=== PATIENT | male | born 1960 | race Caucasian/White ===

== ENCOUNTER → 2016-10-24 | Outpatient (CLI) | payer BC ==
--- NOTE | 2016-10-24 10:18 | XR ---
EXAMINATION TYPE: XR chest 2V DATE OF EXAM: 10/24/2016 7:55 AM HISTORY: R05 cough. REFERENCE: Previous study dated 10/02/2010. FINDINGS: The lungs are overinflated. The lungs are clear. Pleural spaces are clear. Heart size is no rmal. IMPRESSION: COPD.
== END | disposition home or self-care (01) ==
LOC: RADXRMAIN 07:37
PROVIDERS: ATTEND Family Medicine
DX: J44.9 Chronic obstructive pulmonary disease, unspecified (principal)
CPT/HCPCS: 71020

== ENCOUNTER → 2017-04-20 | Outpatient (CLI) | payer BC ==
[2017-04-20 10:07] LABS: CH 33.5; CHCM 33.9; HCT 44.3 % (39.0-53.0); HDW 2.53; HGB 14.7 gm/dL (13.0-17.5); MCHC 33.3 g/dL (31.0-37.0); MCV 99.3 fL (80.0-100.0); Mean Platelet Volume 8.2; RBC 4.47 m/uL (4.30-5.90); RDW 13.9 % (11.5-15.5)
[2017-04-20 10:48] LABS: ALT 44 U/L (21-72); AST 26 U/L (17-59); Anion Gap 9 mmol/L; Carbon Dioxide 26 mmol/L (22-30); Chloride 106 mmol/L (98-107); Non-African American GFR(MDRD) >60 (>60 ml/min/1.73 sqM); Potassium 4.4 mmol/L (3.5-5.1); Sodium 141 mmol/L (137-145)
[2017-04-21 00:47] LABS: Hemoglobin A1C 5.6 % (4.2-6.1)
== END | disposition home or self-care (01) ==
LOC: LABWHC1 09:29
PROVIDERS: ATTEND Psychiatry & Neurology Psychiatry
DX: F32.9 Major depressive disorder, single episode, unspecified (principal)
CPT/HCPCS: 36415; 80051; 82565; 83036; 84439; 84443; 84450; 84460; 84481; 85027

== ENCOUNTER 2017-08-19 08:36 | Day surgery (SDC) | payer BC ==
[2017-08-18 08:47] VITALS: BMI 38.4
[~2017-08-19 08:36] MED LIST: LACTATED RINGERS 1,000 ML IV SCH; LIDOCAINE 1% 20 ML VIAL (10MG/ML) FOR IV START INTRADERMA PRN
[2017-08-19 09:04] VITALS: RESP 18; TEMP 97.2
[2017-08-19] MEDS ORDERED: fentaNYL (PF) 50 MCG/ML 2 ML AMP ONE (09:30)
[2017-08-19] MEDS ORDERED: MIDAZOLAM 2 MG/2 ML VIAL ONE (09:30)
[2017-08-19] MEDS ORDERED: PROPOFOL 10 MG/ML 20 ML VIAL IV ONE (09:30)
--- NOTE | 2017-08-19 09:54 | P.PCN ---
Date of Procedure: 08/19/17 Procedure(s) Performed: BRIEF HISTORY: Patient is a 57-year-old pleasant white male, scheduled for an elective colonoscopy as a part of screening for colorectal neoplasia. PROCEDURE PERFORMED: Colonoscopy with biopsy. PREOPERATIVE DIAGNOSIS: Screening for colon cancer. IV sedation per Anesthesia. PROCEDURE: After informed consent was obtained, the patient, was brought into the endoscopy unit. IV sedation was administered by Anesthesia under continuous monitoring. Digital rectal examination was normal. Initially the Olympus CF- 160 flexible video colonoscope was then inserted in the rectum, gradually advanced into the cecum without any difficulty. Careful examination was performed as the scope was gradually being withdrawn. Ileocecal valve and the appendiceal orifice were visualized and appeared normal. Prep was excellent. Mucosa of the cecum, appeared normal. In the ascending colon there was a 5 mm polyp that was removed by biopsy. In the descending colon there was another 5 mm polyp that was removed by biopsy. Rest of the ascending colon, transverse colon, descending colon, sigmoid colon, and rectum appeared normal. Retroflexion was performed in the rectum and no lesions were seen. The patient tolerated the procedure well. IMPRESSION: 5 mm ascending colon polyp status post removal by cold biopsy 5 mm ascending colon polyp status post removal by cold biopsy Scattered sigmoid diverticulosis RECOMMENDATIONS: Findings of this examination were discussed with the patient as well as his family. He was advised to follow with the biopsy results. If the biopsy shows a tubular adenoma, he can have a repeat colonoscopy in 5 years.
[2017-08-19 10:14] VITALS: BP 128/67; PULSE 60
== END 2017-08-19 10:35 | disposition home or self-care (01) ==
LOC: ORWHC2ENDO 08:36
PROVIDERS: ATTEND Internal Medicine Gastroenterology
DX: Z12.11 Encounter for screening for malignant neoplasm of colon (principal); D12.2 Benign neoplasm of ascending colon; K63.5 Polyp of colon; K57.30 Diverticulosis of large intestine without perforation or abscess without bleeding; I10 Essential (primary) hypertension; F17.210 Nicotine dependence, cigarettes, uncomplicated; E78.5 Hyperlipidemia, unspecified; G47.33 Obstructive sleep apnea (adult) (pediatric); F32.9 Major depressive disorder, single episode, unspecified; Z79.82 Long term (current) use of aspirin; Z79.899 Other long term (current) drug therapy
CPT/HCPCS: 88305; 45380; J2250; J3010; J2704

== ENCOUNTER → 2019-10-06 | Outpatient (CLI) | payer BC ==
--- NOTE | 2019-10-06 09:25 | US ---
EXAMINATION TYPE: US carotid duplex BILAT DATE OF EXAM: 10/06/2019 COMPARISON: NONE CLINICAL HISTORY: R42 Dizziness, giddiness. Dizziness EXAM MEASUREMENTS: RIGHT: Peak Systolic Velocity (PSV) cm/sec ----- Right CCA: 87.7 ----- Right ICA: 133.0 ----- Right ECA: 91.4 ICA/CCA ratio: 1.5 RIGHT: End Diastole cm/sec ----- Right CCA: 17.7 ----- Right ICA: 16.0 ----- Right ECA: 18.7 LEFT: Peak Systolic Velocity (PSV) cm/sec ----- Left CCA: 103.0 ----- Left ICA: 133.0 ----- Left ECA: 173.0 ICA/CCA ratio: 1.3 LEFT: End Diastole cm/sec ----- Left CCA: 20.6 ----- Left ICA: 45.5 ----- Left ECA: 24.9 VERTEBRALS (direction of flow): Right Vertebral: Antegrade Left Vertebral: Antegrade Rhythm: Normal Difficult and limited study due to patient body habitus Bilateral intimal thickening, elevated velocities: right distal ICA, left distal ICA and left proxima l ECA, no significant stenosis. IMPRESSION: Elevated velocities throughout however internal carotid artery to common carotid artery ratios are within normal limits indicating underlying hypertension. Only minimal amount of grayscale plaquing. No hemodynamically significant stenosis seen. Criteria for Assigning % of Stenosis / Diameter reduction (Estimation based on the indirect measurements of the internal carotid artery velocities (ICA PSV). 1. Normal (no stenosis)=ICA PSV < 125 cm/s: ratio < 2.0: ICA EDV<40 cm/s. 2. Less than 50% stenosis=ICA PSV < 125 cm/s: ratio < 2.0: ICA EDV<40 cm/s. 3. 50 to 69% stenosis=ICA PSV of 125 to 230 cm/s: ration 2.0 ? 4.0: ICA EDV 40-100 cm/s. 4. Greater than 70% stenosis to near occlusion= ICA PSV > 230 cm/s: ratio > 4.0: ICA EDV > 100 cm/s. 5. Near occlusion= ICA PSV velocities may be low or undetectable: variable ratio and ICA EDV. 6. Total occlusion=unable to detect flow.
== END | disposition home or self-care (01) ==
LOC: RADUSWWP 07:02
PROVIDERS: ATTEND Family Medicine
DX: R42 Dizziness and giddiness (principal)
CPT/HCPCS: 93880

== ENCOUNTER 2020-06-28 10:18 | Day surgery (SDC) | payer BC ==
[2020-06-27 08:44] VITALS: BMI 41.0
[~2020-06-28 10:18] MED LIST changes: -LIDOCAINE 1% 20 ML VIAL (10MG/ML) FOR IV START INTRADERMA PRN
[2020-06-28 10:51] VITALS: TEMP 97
[2020-06-28] MEDS ORDERED: PROPOFOL 10 MG/ML 20 ML VIAL IV ONE (11:57)
[2020-06-28] MEDS ORDERED: LIDOCAINE 1% INJ 10MG/ML (20 ML MDV) ONE (11:57)
--- NOTE | 2020-06-28 12:21 | P.PCN ---
Date of Procedure: 06/28/20 Procedure(s) Performed: BRIEF HISTORY: Patient is a 60-year-old pleasant male scheduled for an elective colonoscopy as a part of evaluation of prior history of colon polyps and intermittent rectal bleeding. PROCEDURE PERFORMED: Colonoscopy with snare polypectomy PREOPERATIVE DIAGNOSIS: History of colon polyps and intermittent rectal bleeding. IV sedation per Anesthesia. PROCEDURE: After informed consent was obtained, the patient, was brought into the endoscopy unit. IV sedation was administered by Anesthesia under continuous monitoring. Digital rectal examination was normal. Initially the Olympus CF-160 flexible video colonoscope was then inserted in the rectum, gradually advanced into the cecum without any difficulty. Careful examination was performed as the scope was gradually being withdrawn. Ileocecal valve and the appendiceal orifice were visualized and appeared normal. Prep was excellent. Mucosa of the cecum, ascending colon, transverse colon, appeared normal. The descending colon there was a 5 mm polyp removed by snare polypectomy. In the sigmoid colon there were 3 polyps all of which measured between 4 and 5 mm in size removed by snare polypectomy. In the distal rectum there was a 3 mm polyp removed by snare polypectomy. Rest of the descending colon, sigmoid colon, and rectum appeared normal. Retroflexion was performed in the rectum and no lesions were seen. The patient tolerated the procedure well. IMPRESSION: 5 mm 3 sigmoid colon polyps status post polypectomy 5 mm descending colon polyp status post polypectomy 3 mm rectal polyp status post snare polypectomy RECOMMENDATIONS: Findings of this examination were discussed with the patient as well as his family. He was advised to follow with the biopsy results. If the biopsy shows an adenoma he can have a repeat colonoscopy in 5 years.
[2020-06-28 12:55] VITALS: BP 155/83; PULSE 64; RESP 16
== END 2020-06-28 13:07 | disposition home or self-care (01) ==
LOC: ORWHC2ENDO 10:18
PROVIDERS: ATTEND Internal Medicine Gastroenterology
DX: K63.5 Polyp of colon (principal); D12.5 Benign neoplasm of sigmoid colon; D12.8 Benign neoplasm of rectum; Z86.010 Personal history of colon polyps; E78.5 Hyperlipidemia, unspecified; G47.33 Obstructive sleep apnea (adult) (pediatric); F32.9 Major depressive disorder, single episode, unspecified; Z98.890 Other specified postprocedural states; Z87.09 Personal history of other diseases of the respiratory system
CPT/HCPCS: 88305; 45385; J2001; J2704

== ENCOUNTER → 2021-07-25 | Outpatient (CLI) | payer BC ==
--- NOTE | 2021-07-25 10:13 | US ---
EXAMINATION TYPE: US venous doppler duplex LE RT DATE OF EXAM: 07/25/2021 9:58 AM COMPARISON: NONE CLINICAL HISTORY: M79.661 Pain in right lower leg. pain right lower leg SIDE PERFORMED: right TECHNIQUE: The lower extremity deep venous system is examined utilizing real time linear array sonog gerardo with graded compression, doppler sonography and color-flow sonography. VESSELS IMAGED: Common Femoral Vein Deep Femoral Vein Greater Saphenous Vein * Femoral Vein Popliteal Vein Small Saphenous Vein * Proximal Calf Veins (* superficial vessels) Right Leg: no evidence of DVT IMPRESSION: No evidence for DVT at this time.
== END | disposition home or self-care (01) ==
LOC: RADUSWWP 08:53
PROVIDERS: ATTEND Family Medicine
DX: M79.661 Pain in right lower leg (principal)

== ENCOUNTER → 2022-08-13 | Outpatient (CLI) | payer OTHER ==
--- NOTE | 2022-08-13 09:16 | CTL ---
EXAMINATION TYPE: CT Low Dose Lung DATE OF EXAM ORDERED: 08/13/2022 HISTORY: 62-year-old male history of tobacco use, current smoker with 40 pack-year history. Lung [facility] er screening CT DLP: 150.[address] CTDI: 4.30 mGy Automated exposure control for dose reduction was used. SCREENING VISIT: Baseline COMPARISON: None TECHNIQUE: Low dose computed tomography scan was performed through the chest with coronal and sagitta l reconstructions. CT DIAGNOSTIC QUALITY: Satisfactory FINDINGS: Heart normal size without pericardial effusion. Extensive three-vessel coronary artery calcifications are present. There is mild ectasia of the upper descending thoracic aorta 3.0 cm. Mild atherosclerotic arch calcif ications within the charge was a branching anatomy. No thoracic lymphadenopathy by CT size criteria. 1.4 cm nodular area medial right upper lobe centrally along the bronchovascular bundles, axial image 75. Unclear if this corresponds to prominent vascular confluence or suspicious underlying nodule. Onesimo e strandy areas of atelectasis in the mid and lower lungs. No consolidation or pleural effusion. Mild diffuse bronchial wall thickening suggesting bronchitis or asthma. Tiny calcified granuloma superior segment left lower lobe, axial image 102. Visualized upper abdomen shows some underlying fatty infiltration of the liver. Bones: Mild to moderate degenerative disc disease throughout the thoracic spine. IMPRESSION: 1. LungRADS Category 4A (suspicious, 5-15% chance of malignancy); either prominent vascular confluenc e or underlying 1.4 cm right upper lobe pulmonary nodule. 2. Bronchial wall thickening suggesting bronchitis or asthma. Recommend smoking cessation. 3. CAD with extensive three-vessel coronary artery calcifications. 4. Hepatic steatosis. CT LUNG RAD AND CT CHEST RECOMMENDATION: Lung-Rad 4A Suspicious: To clarify the above findings, recom mend initial assessment with a contrast-enhanced CT of the chest. Depending on the findings after con trast administration, either PET/CT versus short interval follow-up can be considered. S Modifier (other clinically significant findings): None
== END | disposition home or self-care (01) ==
LOC: RADCTMAIN 07:26
PROVIDERS: ATTEND Internal Medicine
DX: Z12.2 Encounter for screening for malignant neoplasm of respiratory organs (principal); I25.10 Atherosclerotic heart disease of native coronary artery without angina pectoris; K76.0 Fatty (change of) liver, not elsewhere classified; F17.210 Nicotine dependence, cigarettes, uncomplicated; R91.1 Solitary pulmonary nodule
CPT/HCPCS: 71271

== ENCOUNTER → 2022-08-13 | Outpatient (CLI) | payer OTHER ==
--- NOTE | 2022-08-13 07:54 | US ---
EXAMINATION TYPE: US carotid duplex BILAT DATE OF EXAM: 08/13/2022 COMPARISON: US CLINICAL HISTORY: I65.23. Dizziness TECHNIQUE: Carotid duplex ultrasound examination. Indirect Doppler criteria was utilized. FINDINGS: Large pt body habitus, heavy breathing, difficult exam EXAM MEASUREMENTS: RIGHT: Peak Systolic Velocity (PSV) cm/sec ----- Right CCA: 98.2 ----- Right ICA: 125.8 ----- Right ECA: 141.8 ICA/CCA ratio: 1.3 RIGHT: End Diastole cm/sec ----- Right CCA: 24.1 ----- Right ICA: 19.8 ----- Right ECA: 22.7 LEFT: Peak Systolic Velocity (PSV) cm/sec ----- Left CCA: 110.8 ----- Left ICA: 133.4 ----- Left ECA: 122.4 ICA/CCA ratio: 1.2 LEFT: End Diastole cm/sec ----- Left CCA: 37.0 ----- Left ICA: 39.7 ----- Left ECA: 18.9 VERTEBRALS (direction of flow): Right Vertebral: Antegrade Left Vertebral: Antegrade Rhythm: Normal [employer] DE[employer]ER NOTES: Elevated velocities throughout, similar findings to prior US, however no significa nt plaque causing stenosis visualized IMPRESSION: 50 to 69% stenosis of bilateral carotid bifurcations by peak systolic velocity. Criteria for Assigning % of Stenosis / Diameter reduction (Estimation based on the indirect measurements of the internal carotid artery velocities (ICA PSV). 1. Normal (no stenosis)=ICA PSV < 125 cm/s: ratio < 2.0: ICA EDV<40 cm/s. 2. Less than 50% stenosis=ICA PSV < 125 cm/s: ratio < 2.0: ICA EDV<40 cm/s. 3. 50 to 69% stenosis=ICA PSV of 125 to 230 cm/s: ration 2.0 ? 4.0: ICA EDV 40-100 cm/s. 4. Greater than 70% stenosis to near occlusion= ICA PSV > 230 cm/s: ratio > 4.0: ICA EDV > 100 cm/s. 5. Near occlusion= ICA PSV velocities may be low or undetectable: variable ratio and ICA EDV. 6. Total occlusion=unable to detect flow.
== END | disposition home or self-care (01) ==
LOC: RADUSWWP 06:51
PROVIDERS: ATTEND Internal Medicine
DX: I65.23 Occlusion and stenosis of bilateral carotid arteries (principal)
CPT/HCPCS: 93880

== ENCOUNTER → 2022-08-28 | Outpatient (CLI) | payer OTHER ==
--- NOTE | 2022-08-28 09:18 | CT ---
EXAMINATION TYPE: CT chest w con DATE OF EXAM: 08/28/2022 COMPARISON: Low-dose lung screening CT HISTORY: Salter pulmonary nodule. Abnormal CT. CT DLP: 621.90 mGycm. Automated Exposure Control for Dose Reduction was Utilized. TECHNIQUE: CT scan of the thorax is performed following with IV Contrast, patient injected with 100 mL of Isovue 300. FINDINGS: LUNGS: Area of concern central right upper lobe appears to be overestimated as is a confluence of bra nching vessels at this level with likely smaller 4 mm nodule series 4 image 18. No nodules greater th an 1.0 cm. No pleural effusion or pneumothorax is seen. MEDIASTINUM: There are no greater than 1 cm hilar or mediastinal lymph nodes. No cardiomegaly or pe ricardial effusion is seen. Moderate to severe three-vessel coronary artery calcification is redemon strated. OTHER: Visualized liver is heterogeneously hypodense suggesting diffuse fatty infiltration. IMPRESSION: Nodule is felt overestimated as is measured with adjacent confluent and branching vessels . Advise contrast enhanced CT follow-up in 6 months time to reassess as only measuring near 4 to 5 mm on current study.
== END | disposition home or self-care (01) ==
LOC: RADCTMAIN 08:33
PROVIDERS: ATTEND Internal Medicine
DX: R91.1 Solitary pulmonary nodule (principal)
CPT/HCPCS: 71260; Q9967

== ENCOUNTER → 2024-10-12 | Outpatient (CLI) | payer MEDICARE ==
--- NOTE | 2024-10-12 12:43 | CTL ---
EXAMINATION TYPE: CT Low Dose Lung DATE OF EXAM: 10/12/2024 12:29 PM COMPARISON: 08/13/2022 CLINICAL INDICATION: Male, 64 years old with history of Z12.2 SCREENING LUNG CA, personal tobacco use , History of tobacco use. TECHNIQUE: Low Dose CT Lung Screening, Low dose computed tomography scan was performed through the est at 1 millimeter thick sections and reconstructed images in the coronal plane at 1 mm thick sectio ns. IV CONTRAST USED: None. SCREENING VISIT: 2 CT DLP: 95.1 mGycm, Automated exposure control for dose reduction was used. CT CTDI: 2.6 mGy FINDINGS: CT DIAGNOSTIC QUALITY: Satisfactory LUNG NODULES: Nodular vascular confluence right upper lobe appears unchanged relative to prior study. Underlying nodule is not felt to be present. LUNGS: COPD: Severity: Mild Fibrosis: Severity:None Lymph nodes: None Other findings: None RIGHT PLEURAL SPACE: Effusion: None Calcification: None Thickening: None Pneumothorax: None LEFT PLEURAL SPACE: Effusion: None Calcification: None Thickening: None Pneumothorax: None HEART: * Size within normal limits. * No significant coronary artery calcifications. OTHER FINDINGS: Upper abdomen: No significant abnormality Bony thorax: Degenerative changes Supraclavicular region: No significant abnormalityOther: No significant abnormalityI IMPRESSION: 1. No clinically significant pulmonary nodules. 2. Mild emphysema. CT LUNG RAD AND CT CHEST RECOMMENDATION: Lung-Rad 1 Negative: Continue annual screening with LDCT in 12 months. S Modifier (other clinically significant findings): [facility], , 10/12/2024 12:41 PM
--- NOTE | 2024-10-12 12:56 | US ---
EXAMINATION TYPE: US carotid duplex BILAT DATE OF EXAM: 10/12/2024 COMPARISON: 08/13/22 CLINICAL INDICATION: Male, 64 years old with history of [id number] CAROTID STENOSIS, BILATERAL; stenosis Additional History: I65.- Occlusion/stenosis of specified precerebral artery, specified laterality TECHNIQUE: Grayscale, color Doppler and spectral Doppler evaluation of the bilateral carotid systems and vertebral arteries. Indirect Doppler criteria was utilized. FINDINGS: EXAM MEASUREMENTS: RIGHT: Peak Systolic Velocity (PSV) cm/sec ----- Right CCA: 109.9 ----- Right ICA: 72.9 ----- Right ECA: 105.6 ICA/CCA ratio: 0.7 RIGHT: End Diastole cm/sec ----- Right CCA: 19.8 ----- Right ICA: 18.8 ----- Right ECA: 15.0 LEFT: Peak Systolic Velocity (PSV) cm/sec ----- Left CCA: 100.0 ----- Left ICA: 93.8 ----- Left ECA: 113.0 ICA/CCA ratio: 0.9 LEFT: End Diastole cm/sec ----- Left CCA: 21.1 ----- Left ICA: 16.8 ----- Left ECA: 14.6 VERTEBRALS (direction of flow): Right Vertebral: Antegrade Left Vertebral: Antegrade Rhythm: Normal STACKER DRIVER NOTES: plaque seen in left bulb. No elevated velocities seen Color Doppler imaging shows patency with blood flow throughout the carotid artery. Spectral waveforms are within normal limits. IMPRESSION: Right: Less than 50% stenosis of the carotid bifurcation. Left: Less than 50% stenosis of the carotid bifurcation. Criteria for Assigning % of Stenosis / Diameter reduction (Estimation based on the indirect measurements of the internal carotid artery velocities (ICA PSV). 1. Normal (no stenosis)=ICA PSV < 125 cm/s: ratio < 2.0: ICA EDV<40 cm/s. 2. Less than 50% stenosis=ICA PSV < 125 cm/s: ratio < 2.0: ICA EDV<40 cm/s. 3. 50 to 69% stenosis=ICA PSV of 125 to 230 cm/s: ration 2.0 ? 4.0: ICA EDV 40-100 cm/s. 4. Greater than 70% stenosis to near occlusion= ICA PSV > 230 cm/s: ratio > 4.0: ICA EDV > 100 cm/s. 5. Near occlusion= ICA PSV velocities may be low or undetectable: variable ratio and ICA EDV. 6. Total occlusion=unable to detect flow. [facility], , 10/12/2024 12:53 PM
--- NOTE | 2024-10-13 08:59 | CA ---
Transthoracic Echo Report Name: Caden Rico Age: 64 Gender: M : 1960 Exam Date: 10/12/2024 12:52 Exam Location: [facility] Ht (in): 69 Wt (lb): 228 Ordering Physician: Luis Armando Herrera MD Attending/Referring Phys: Luis Armando Herrera MD Table Keeper Dulce Burleson RDCS Procedure CPT: Indications: Z12.2 SCREENING LUNG CA I65.23 OCCLUSION AND STENO; I65.23 OCCLUSION AND STENO Cardiac Hx: Technical Quality: Fair Contrast 1: Total Dose (mL): Contrast 2: Total Dose (mL): MEASUREMENTS (Male / Female) Normal Values 2D ECHO LV Diastolic Diameter PLAX 5.3 cm 4.2 - 5.9 / 3.9 - 5.3 cm LV Systolic Diameter PLAX 3.6 cm IVS Diastolic Thickness 0.5 cm 0.6 - 1.0 / 0.6 - 0.9 cm LVPW Diastolic Thickness 1.0 cm 0.6 - 1.0 / 0.6 - 0.9 cm LV Relative Wall Thickness 0.3 LVOT Diameter 2.1 cm LV Diastolic Volume MOD BP 90.3 cm??? 67 - 155 / 56 - 104 cm??? LV Systolic Volume MOD BP 38.3 cm??? 22 - 58 / 19 - 49 cm??? LV Ejection Fraction MOD BP 57.6 % >= 55 % LV Cardiac Index MOD BP 1413.3 cm???/min???m??? LV Diastolic Volume MOD 4C 98.3 cm??? LV Systolic Volume MOD 4C 38.8 cm??? LV Ejection Fraction MOD 4C 60.5 % LV Cardiac Index MOD 4C 1617.4 cm???/min???m??? LV Diastolic Length 4C 8.7 cm LV Systolic Length 4C 7.1 cm LV Diastolic Volume MOD 2C 80.6 cm??? LV Systolic Volume MOD 2C 34.9 cm??? LV Ejection Fraction MOD 2C 56.7 % LV Cardiac Index MOD 2C 1243.0 cm???/min???m??? LV Diastolic Length 2C 8.4 cm LV Systolic Length 2C 6.5 cm LA Volume 53.7 cm??? 18 - 58 / 22 - 52 cm??? LA Volume Index 23.6 cm???/m??? 16 - 28 cm???/m??? Ascending Aorta Diameter 3.1 cm DOPPLER AV Peak Velocity 182.5 cm/s AV Peak Gradient 13.3 mmHg AV Mean Velocity 121.0 cm/s AV Mean Gradient 6.8 mmHg AV Velocity Time Integral 30.7 cm LVOT Peak Velocity 132.0 cm/s LVOT Peak Gradient 7.0 mmHg LVOT Velocity Time Integral 27.0 cm LVOT Stroke Volume 92.8 cm??? LVOT Stroke Volume Index 42.5 ml/m??? LVOT Cardiac Index 2524.2 cm???/min???m??? AV Area Cont Eq vti 3.0 cm??? AV Area Cont Eq pk 2.5 cm??? MV Area PHT 2.9 cm??? Mitral E Point Velocity 64.6 cm/s Mitral A Point Velocity 88.8 cm/s Mitral E to A Ratio 0.7 MV Deceleration Time 265.6 ms TR Peak Velocity 276.8 cm/s TR Peak Gradient 30.6 mmHg Right Atrial Pressure 5.0 mmHg Pulmonary Artery Systolic Pressu 35.6 mmHg Right Ventricular Systolic Press 35.6 mmHg PV Peak Velocity 108.5 cm/s PV Peak Gradient 4.7 mmHg FINDINGS Left Ventricle Left ventricular ejection fraction is estimated at 55-60 %. Left ventricular cavity size normal. Left ventricular wall thickness normal. No obvious regional wall motion abnormalities. Right Ventricle Normal right ventricular size and function. Mild pulmonary hypertension. Right Atrium Normal right atrial size. Left Atrium Normal left atrial size. Mitral Valve Structurally normal mitral valve. No evidence for mitral valve prolapse. No mitral stenosis. Trace mitral regurgitation. Aortic Valve Trileaflet aortic valve. No aortic valve stenosis or regurgitation. Tricuspid Valve Structurally normal tricuspid valve. No tricuspid stenosis. Mild tricuspid regurgitation. Pulmonic Valve Structurally normal pulmonic valve. No pulmonic stenosis. Trace pulmonic regurgitation. Pericardium No pericardial effusion. Aorta Normal size aortic root and proximal ascending aorta. CONCLUSIONS Normal LV size and systolic function. Aortic valve sclerosis without restriction. Mild mitral annular calcification. Mild mitral and tricuspid regurgitation. No pericardial effusion. No significant pulmonary hypertension Previewed by: Dr. Pauly Raya MD (Electronically Signed) Final Date: 13 October 2024 08:58
== END | disposition home or self-care (01) ==
LOC: RADCTMAIN 11:42
PROVIDERS: ATTEND Internal Medicine
DX: Z12.2 Encounter for screening for malignant neoplasm of respiratory organs (principal); I65.23 Occlusion and stenosis of bilateral carotid arteries; I25.10 Atherosclerotic heart disease of native coronary artery without angina pectoris; J43.9 Emphysema, unspecified; Z87.891 Personal history of nicotine dependence
CPT/HCPCS: 71271; 93306; 93880